=== PATIENT | female | born 1980 | race Caucasian/White ===

== ENCOUNTER 2018-11-30 19:11 | Emergency (ER) | payer OTHER, SELFPAY ==
[2018-11-30 19:15] VITALS: BP 132/92; PULSE 88; RESP 18; TEMP 36.7; O2SAT 98
[2018-11-30 19:35] VITALS: BP 132/91
--- NOTE | 2018-11-30 19:52 | ED_ITS ---
HPI - Abdominal Pain General Chief Complaint: Abdominal Pain Stated Complaint: post surgery symptoms Time Seen by Provider: 11/30/18 19:25 Source: patient Mode of arrival: ambulatory Limitations: no limitations History of Present Illness HPI narrative: Patient is a 38-year-old female who recently had a hysterectomy with bladder suspension 1 week ago presenting today with left lower quadrant pain ongoing for the last 2 days. She denies any fever. She says the pain is definitely worse when she moves. She has been constipated since she left hospital. She is on pain medications a bowel regimen. She did have a small bowel movement today. She has been constantly feeling nauseated but no vomiting she also Zofran at home for that. She has no painful or frequent urination. Pain seems to be pinpoint. She does have diverticulitis. MD complaint: abdominal pain Related Data Home Medications Medication Instructions Recorded Confirmed melatonin 10 mg capsule 10 mg PO BEDTIME PRN 02/27/18 11/30/18 fluoxetine 10 mg PO DAILY 11/30/18 11/30/18 gabapentin 300 mg PO TID 11/30/18 11/30/18 hydromorphone 1 - 2 tab PO Q4HR PRN 11/30/18 11/30/18 ibuprofen 800 mg PO TID 11/30/18 11/30/18 ondansetron 4 mg PO Q6H PRN 11/30/18 11/30/18 oxycodone 1 - 2 tab PO Q4HR PRN 11/30/18 11/30/18 polyethylene glycol 3350 [Miralax] 1 dose PO DAILY PRN 11/30/18 11/30/18 sennosides [senna] 2 tab BID PRN 11/30/18 11/30/18 Previous Rx's Medication Instructions Recorded sulfamethoxazole-trimethoprim 1 tab PO BID #14 tab 11/30/18 [Bactrim DS] Allergies Allergy/AdvReac Type Severity Reaction Status Date / Time meperidine [From DEMEROL] Allergy Unknown Verified 11/30/18 19:22 latex Allergy Rash Verified 11/30/18 19:22 venom-honey bee Allergy Anaphylaxis Verified 11/30/18 19:22 Review of Systems Review of Systems GENERAL: Denies chills, fatigue, malaise, fever, sweats, travel HEENT: Denies sinus pain, ear pain, sore throat, difficulty swallowing, neck pain RESPIRATORY: Denies dyspnea, cough, wheezing, hemoptysis, sputum. CARDIOVASCULAR: Denies chest pain, palpitations, orthopnea, edema GASTROINTESTINAL: See HPI : Denies dysuria, frequency, incontinence, hematuria, urinary retention, flank pain. MUSCULOSKELETAL: Denies weakness, joint pain, or bony pain SKIN: No rash, no erythema, no pruritus NEUROLOGIC: Denies weakness, dizziness, headache, numbness, change in speech, confusion PSYCHIATRIC: No concerning psychosocial issues. 12 point review of systems is negative except for those stated above and HPI [facility] Medical History Endometriosis (Acute) Chronic pain (Acute) Surgical History S/P appendectomy (Acute) Family History (Updated 02/26/18 @ 16:46 by Julia Toussaint) Father Skin cancer Thyroid disorder Mother Diabetes mellitus Thyroid disorder Social History marital status: Smoking Status: Never smoker alcohol intake: current (ON OCCASION ) substance use type: marijuana Family History Father Skin cancer Thyroid disorder Mother Diabetes mellitus Thyroid disorder Social History marital status: Smoking Status: Never smoker alcohol intake: current (ON OCCASION ) substance use type: marijuana Exam Initial Vital Signs Initial Vital Signs: Vital Signs Temperature 98.1 F 11/30/18 19:15 Pulse Rate 88 11/30/18 19:15 Respiratory Rate 18 11/30/18 19:15 Blood Pressure 132/92 H 11/30/18 19:15 Pulse Oximetry 98 11/30/18 19:15 GENERAL: Well-appearing, well-nourished and in no acute distress. HEENT: Head atraumatic,EOMI, pupils reactive, face symmetric, moist mucous membranes CARDIOVASCULAR: Regular rate and rhythm without murmurs, rubs or gallops. RESPIRATORY: Breath sounds equal bilaterally, no wheezes rales or rhonchi. ABDOMEN: Soft, slightly distended mild left lower quadrant pain no guarding no rebound incision sites are clean and dry with no infectious signs. His : No CVA tenderness EXTREMITIES: Normal range of motion, no clubbing or edema. Neurovascularly intact NEUROLOGICAL: Alert and oriented x4.Normal gait and speech. Cranial nerves II through XII grossly intact. SKIN: Warm, dry, no laceration, no petechiae, no rashes or lesions. Course Orders Ordered: ED Orders 11/30/18 19:52 CT abdomen pelvis w con Stat 11/30/18 19:58 Complete Blood Count AUTO DIFF Stat Comprehensive Metabolic Panel Stat Lipase Stat Partial Thromboplastin Time Stat Prothrombin Time INR Stat Discontinued Medications Sodium Chloride (Normal Saline 0.9%) 1,000 mls @ 1,000 mls/hr IV CONT KIRK Last Infusion: 11/30/18 21:38 Dose: 0 mls/hr Infusion: 11/30/18 20:54 Dose: 1,000 mls/hr Infusion: 11/30/18 20:40 Dose: 0 mls/hr Admin: 11/30/18 20:08 Dose: 1,000 mls/hr Trimethoprim/Sulfamethoxazole (Bactrim Ds Prepack) 1 bottle MISC SEEINSTR ONE Stop: 11/30/18 21:35 Last Admin: 11/30/18 21:42 Dose: 1 bottle Vital Signs - 8 hr 11/30/18 19:15 11/30/18 19:35 11/30/18 20:16 Temperature 98.1 F Pulse Rate 88 Respiratory Rate 18 Blood Pressure 132/92 H Blood Pressure [Left Arm] 132/91 H 123/79 Pulse Oximetry 98 11/30/18 20:53 11/30/18 21:00 11/30/18 21:46 Temperature Pulse Rate 82 79 73 Respiratory Rate 16 18 Blood Pressure Blood Pressure [Left Arm] 144/58 H 124/71 128/81 Pulse Oximetry 97 97 98 MDM - Abdominal Pain Lab Data Attestation: I reviewed the patient's lab results. Result diagrams: 11/30/18 19:58 11/30/18 19:58 Lab Results 11/30/18 11/30/18 11/30/18 Range/Units 16:04 19:58 19:58 WBC 8.2 (4.5-11.0) X10^3/uL RBC 4.47 (4.0-5.2) X10^6/uL Hgb 13.7 (12.0-16.0) g/dL Hct 40.3 (36-46) % MCV 90.1 (80-100) fL MCH 30.7 (26-34) PG MCHC 34.1 (30-36) % RDW 12.6 (11.6-14.8) % Plt Count 286 (150-400) X10^3/uL Neut % (Auto) 70.5 (50-75) % Lymph % (Auto) 21.0 L (25-40) % [place] % (Auto) 6.1 (3-14) % Eos % (Auto) 1.6 L (2-4) % Baso % (Auto) 0.8 (0-2) % Neut # (Auto) 5800 (5987-8960) /uL Lymph # (Auto) 1700 (9379-0546) /uL [place] # (Auto) 500 (0-900) /uL Eos # (Auto) 100 (0-450) /uL Baso # (Auto) 100 (0-100) /uL PT 11.9 (10.1-12.7) SECONDS INR 1.0 (0.9-1.3) APTT 32 (26.4-36.2) SECONDS Sodium (137-145) mmol/L Potassium (3.4-5.1) mmol/L Chloride (98-107) mmol/L Carbon Dioxide (22-32) mmol/L BUN (7-17) mg/dL Creatinine (0.52-1.04) mg/dL Estimated GFR (>60) mL/min BUN/Creatinine Ratio (6-22) Glucose (70-100) mg/dL Calcium (8.4-10.2) mg/dL Total Bilirubin (0.2-1.3) mg/dL AST (14-36) IU/L ALT (9-52) IU/L Alkaline Phosphatase (38-126) U/L Total Protein (6.3-8.2) g/dL Albumin (3.5-5.0) g/dL Globulin (1.7-4.1) g/dL Albumin/Globulin Ratio (1.0-2.8) Lipase (23-300) U/L Urine RBC None seen (0-5/HPF) Urine WBC 1-5/hpf (0-5/HPF) Ur Squamous Epith Cells 1-5 /hpf (0-5/HPF) Urine Bacteria Few (2-10) H (None) Ur Culture Indicated? Specimen cultured 11/30/18 Range/Units 19:58 WBC (4.5-11.0) X10^3/uL RBC (4.0-5.2) X10^6/uL Hgb (12.0-16.0) g/dL Hct (36-46) % MCV (80-100) fL MCH (26-34) PG MCHC (30-36) % RDW (11.6-14.8) % Plt Count (150-400) X10^3/uL Neut % (Auto) (50-75) % Lymph % (Auto) (25-40) % [place] % (Auto) (3-14) % Eos % (Auto) (2-4) % Baso % (Auto) (0-2) % Neut # (Auto) (1065-4173) /uL Lymph # (Auto) (4648-3815) /uL [place] # (Auto) (0-900) /uL Eos # (Auto) (0-450) /uL Baso # (Auto) (0-100) /uL PT (10.1-12.7) SECONDS INR (0.9-1.3) APTT (26.4-36.2) SECONDS Sodium 138 (137-145) mmol/L Potassium 3.8 (3.4-5.1) mmol/L Chloride 99 (98-107) mmol/L Carbon Dioxide 27 (22-32) mmol/L BUN 7 (7-17) mg/dL Creatinine 0.80 (0.52-1.04) mg/dL Estimated GFR > 60.0 (>60) mL/min BUN/Creatinine Ratio 8.8 (6-22) Glucose 132 H (70-100) mg/dL Calcium 9.4 (8.4-10.2) mg/dL Total Bilirubin 0.6 (0.2-1.3) mg/dL AST 21 (14-36) IU/L ALT 25 (9-52) IU/L Alkaline Phosphatase 56 (38-126) U/L Total Protein 7.5 (6.3-8.2) g/dL Albumin 4.4 (3.5-5.0) g/dL Globulin 3.1 (1.7-4.1) g/dL Albumin/Globulin Ratio 1.4 (1.0-2.8) Lipase 43 (23-300) U/L Urine RBC (0-5/HPF) Urine WBC (0-5/HPF) Ur Squamous Epith Cells (0-5/HPF) Urine Bacteria (None) Ur Culture Indicated? Point of care testing: Urine Dip Bedside Urine Glucose Negative Bedside Urine Bilirubin - Negative Bedside Urine Ketone - Negative Urine Specific [place] 1.10 Bedside Urine Occult Blood +++ Bedside Urine pH 6.0 Bedside Urine Protein - Negative Bedside Urine Urobilinogen - Negative Bedside Urine Nitrite - Negative Bedside Urine Leukocytes ++ [address] scan - abdomen: Radiologist's impression: PROCEDURE: CT ABDOMEN PELVIS W CON INDICATIONS: llq pain recent hysterectomy and bladder suspension TECHNIQUE: After the administration of intravenous contrast, 5 mm thick sections acquired from the diaphragm to the symphysis. 5 mm coronal and sagittal reformats were acquired. For radiation dose reduction, the following was used: automated exposure control, adjustment of mA and/or kV according to patient size. COMPARISON: None. FINDINGS: Image quality: Excellent. ABDOMEN: Lung bases: Lung bases are clear. Heart size is normal. Solid organs: Liver is normal in size and enhancement. Gallbladder is contracted and is within normal limits. Biliary system is non dilated. Pancreas enhances normally. Spleen is normal in size and enhancement. No adrenal nodules. Kidneys demo nstrate normal size and enhancement, without hydronephrosis. Peritoneum and bowel: Bowel loops demonstrate normal wall thickness and caliber. No free fluid or air. There is a small hiatal hernia. Fecal stasis throughout the colon is seen. Appendix is surgically absent. Numerous small pockets of free air are seen in nondependent portion of lower abdomen and pelvis and left lower quadrant, most likely represent iatrogenic air given patient's history of recent hysterectomy and bladder suspension. No free fluid is seen. Nodes and vessels: No retroperitoneal or mesenteric adenopathy by size criteria. Aorta and inferior vena cava are normal in size. Miscellaneous: No ventral hernias. PELVIS: Genitourinary: Bladder wall thickness is normal. Miscellaneous: No inguinal hernias or adenopathy. Patient is status post hysterectomy with post surgical changes and small amount of fluid seen in the vaginal cuff region. Postsurgical changes in anterior pelvic wall are seen. Bones: No suspicious bony lesions. No vertebral body compression fractures. IMPRESSION: 1. Small amount of peritoneal free air in the lower abdomen and pelvis, most consistent with iatrogenic air from recent hysterectomy. Small amount of fluid noted in the vaginal cuff region. Post surgical changes in anterior lower pelvic wall. 2. Mild constipation. No bowel obstruction. Prior appendectomy. 3. No renal stone or hydronephrosis. Dictated by: Lisandro Lundy M.D. on 11/30/2018 at 21:02 [facility] Narrative Medical decision making narrative: Patient's pain has improved. Blood work and CT are reassuring no complications from surgery. She does have some painful urination with leukocytes in her urine. This time will treat for UTI. Recommend follow up outpatient with her surgeon. Discharge Plan Departure Patient Disposition: Home Clinical Impression: Post-operative pain UTI (urinary tract infection) Qualifiers: Urinary tract infection type: acute cystitis Hematuria presence: with hematuria Qualified Code(s): N30.01 - Acute cystitis with hematuria Discharge Date/Time: 11/30/18 21:50 Interventions: ED Discharge Assessment Last Done: 11/30/18 21:47 Instructions: DI for Postoperative Pain Activity Restrictions/Additional Instructions: *You have been diagnosed with postoperative pain and uti *What to do: At this time here abdominal CT and blood work is reassuring. Increase fluid intake. *Continue to take medications as directed Bactrim 1 tablet twice a day for 7 days--> set to [facility] in [place] *Follow up with your primary care provider in 2-3 days, with your surgeon as previously scheduled *Return to ER if you should have increase abdominal pain not tolerating fluids, fever or any new, worsening or concerning symptoms Prescriptions: New sulfamethoxazole-trimethoprim [Bactrim DS] 800-160 mg tablet 1 tab PO BID Qty: 14 RF: 0 No Action melatonin 10 mg capsule 10 mg PO BEDTIME PRN (Reason: insomnia) RF: 0 sennosides [senna] 8.6 mg Tablet 2 tab BID PRN (Reason: Constipation) RF: 0 polyethylene glycol 3350 [Miralax] 17 gram Powder In Packet 1 dose PO DAILY PRN (Reason: Constipation) RF: 0 ibuprofen 800 mg Tablet 800 mg PO TID RF: 0 fluoxetine 10 mg tablet 10 mg PO DAILY RF: 0 hydromorphone 2 mg tablet 1 - 2 tab PO Q4HR PRN (Reason: Pain, Severe) RF: 0 gabapentin 300 mg capsule 300 mg PO TID RF: 0 ondansetron 4 mg Tablet,Disintegrating 4 mg PO Q6H PRN (Reason: nausea / vomiting) RF: 0 oxycodone 5 mg tablet 1 - 2 tab PO Q4HR PRN (Reason: Pain (Scale Score 7-10)) RF: 0
[2018-11-30 20:01] LABS: RBC Urine None Seen (0-5/HPF)
[2018-11-30 20:04] LABS: Add Manual Diff / Slide Review NO; Basophils Absolute Auto 100 /uL (0-100); Basophils Percent Auto 0.8 % (0-2); Eosinophils Absolute Auto 100 /uL (0-450); Eosinophils Percent Auto 1.6 % (2-4); Hematocrit 40.3 % (36-46); Hemoglobin 13.7 g/dL (12.0-16.0); Lymphocytes Absolute Auto 1700 /uL (1100-4500); Mean Corpuscular HGB Conc 34.1 % (30-36); Mean Corpuscular Hemoglobin 30.7 PG (26-34); Mean Corpuscular Volume 90.1 fL (80-100); Monocytes Absolute Auto 500 /uL (0-900); Monocytes Percent Auto 6.1 % (3-14); Neutrophils Absolute Auto 5800 /uL (1500-7000); Neutrophils Percent Auto 70.5 % (50-75); Platelet Count 286 X10^3/uL (150-400); Red Blood Cell Count 4.47 X10^6/uL (4.0-5.2); Red Cell Distribution Width 12.6 % (11.6-14.8); White Blood Cell Count 8.2 X10^3/uL (4.5-11.0)
[2018-11-30] MEDS: SODIUM CHLORIDE 0.9% 1,000 ML 1000 ML IV (20:08)
[2018-11-30 20:12] LABS: Squamous Epithelial Cell Urine 1-5 /HPF (0-5/HPF); WBC Urine 1-5/HPF (0-5/HPF)
[2018-11-30 20:12] LABS: Prothrombin Time 11.9 SECONDS (10.1-12.7)
[2018-11-30 20:13] LABS: Bacteria Urine Few (2-10); Culture Indicated Urine Specimen Cultured
[2018-11-30 20:15] LABS: PTT Partial Thromboplastin Tim 32 SECONDS (26.4-36.2)
[2018-11-30 20:16] VITALS: BP 123/79
[2018-11-30 20:18] LABS: Alanine Aminotransferase 25 IU/L (9-52); Albumin 4.4 g/dL (3.5-5.0); Albumin Globulin Ratio 1.4 (1.0-2.8); Alkaline Phosphatase 56 U/L (38-126); Aspartate Aminotransferase 21 IU/L (14-36); BUN Creatinine Ratio 8.8 (6-22); Bilirubin Total 0.6 mg/dL (0.2-1.3); Blood Urea Nitrogen 7 mg/dL (7-17); Calcium 9.4 mg/dL (8.4-10.2); Carbon Dioxide 27 mmol/L (22-32); Chloride 99 mmol/L (98-107); Estimated Glomerular Filt Rate > 60.0 mL/min (>60); Globulin 3.1 g/dL (1.7-4.1); Glucose 132 mg/dL (70-100); HEMOLYSIS < 15 (0-50); Lipase 43 U/L (23-300); Potassium 3.8 mmol/L (3.4-5.1); Sodium 138 mmol/L (137-145); Total Protein 7.5 g/dL (6.3-8.2)
[2018-11-30 20:53] VITALS: BP 117/72; BP 144/58; PULSE 82; RESP 16; O2SAT 97
[2018-11-30 21:00] VITALS: BP 124/71; PULSE 79; O2SAT 97
[2018-11-30] MEDS: TRIMETH/SULFA 160/800 PREPACK 1 BOTTLE MISC (21:42)
[2018-11-30 21:46] VITALS: BP 128/81; PULSE 73; RESP 18; O2SAT 98
== END 2018-11-30 21:50 | disposition home or self-care (01) ==
PROVIDERS: Emergency Provider Emergency Medicine
DX: G89.18 Other acute postprocedural pain (principal); N30.01 Acute cystitis with hematuria
CPT/HCPCS: 36591; 51798; 74177; 80053; 81003; 81015; 83690; 85025; 85610; 85730; 87077; 87086; 87186; 96360; 99284; 99285; Q9967

== ENCOUNTER → 2019-02-04 09:22 | Outpatient (CLI) | payer OTHER, SELFPAY ==
[2019-02-04 11:38] LABS: Free T3, Triiodothyronine Free 3.75 pg/mL (2.77-5.27); Free T4, Direct Thyroxine 0.97 ng/dL (0.78-2.19)
[2019-02-04 11:52] LABS: Thyroid Stimulating Hormone 1.15 uIU/mL (0.47-4.68)
[2019-02-05 16:20] LABS: Anti Thyroglobulin Antibody < 1 IU/mL (< 2); Thyroid Peroxidase Antibodies 8 IU/mL (< 9)
[2019-02-08 12:55] LABS: ANA Screen, IFA POSITIVE (NEGATIVE)
== END ==
PROVIDERS: PCP Family Medicine; Visit Provider Naturopath
DX: E04.9 Nontoxic goiter, unspecified (principal); E04.1 Nontoxic single thyroid nodule; Z83.49 Family history of other endocrine, nutritional and metabolic diseases
CPT/HCPCS: 36415; 84439; 84443; 84481; 86038; 86376; 86800

== ENCOUNTER → 2019-02-11 09:19 | Outpatient (CLI) | payer OTHER, SELFPAY ==
--- NOTE | 2019-02-11 | DI.US.S_ITS ---
PROCEDURE: US THYROID INDICATIONS: NONTOXIC GOITER, UNSPECIFID TECHNIQUE: Real-time scanning was performed of the thyroid gland, with image documentation. COMPARISON: [facility], US, PELVIC COMPLETE, 06/03/2011, 10:15. [facility], US, ABDOMEN COMPLETE, 02/21/2011, 16:30. FINDINGS: Right: Thyroid lobe measures 5.4 x 2.2 x 2.0 cm, and is homogeneous in echotexture. Left: Thyroid lobe measures 5.0 x 1.5 x 1.5 cm, and is homogenous in echotexture. Isthmus: 4.0 mm thick. Nodule number: 1 Location: Right mid Size: 1.6 x 1.0 x 1.2 cm. Composition: Predominantly solid Echogenicity: Hypoechoic Shape: wider than tall. Margins: Ill-defined Echogenic foci: None Total points: 4 ACR TI-RADS category: Moderately suspicious Nodule number: 2 Location: Right mid medial Size: 1.1 x 1.1 x 1.1 cm. Composition: Solid Echogenicity: Hypoechoic Shape: wider than tall. Margins: Ill-defined Echogenic foci: None Total points: 4 ACR TI-RADS category: Moderately suspicious Nodule number: 3 Location: Right mid inferior Size: 1.6 x 1.6 x 1.7 cm. Composition: Solid Echogenicity: Hypoechoic Shape: wider than tall. Margins: Ill-defined Echogenic foci: Punctate echogenic foci Total points: 7 ACR TI-RADS category: Highly suspicious Nodule number: 4 Location: Left mid Size: 1.0 x 0.7 x 0.9 cm. Composition: Solid Echogenicity: Hypoechoic Shape: wider than tall. Margins: Ill-defined Echogenic foci: Punctate echogenic foci Total points: 7 ACR TI-RADS category: Highly suspicious Nodule number: 5 Location: Left mid inferior Size: 0.8 x 0.7 x 0.8 cm. Composition: Solid Echogenicity: Isoechoic Shape: wider than tall. Margins: Ill-defined Echogenic foci: Punctate echogenic foci Total points: 6 ACR TI-RADS category: Moderately suspicious Nodule number: 6 Location: Left mid medial Size: 1.0 x 0.8 x 0.8 cm Composition: Solid Echogenicity: Hyperechoic Shape: wider than tall. Margins: Ill-defined Echogenic foci: Punctate foci Total points: 6 ACR TI-RADS category: Moderately suspicious IMPRESSION: Bilateral thyroid nodules as above. Recommend ultrasound-guided fine needle aspiration of the highly suspicious right thyroid nodule labeled #3, the highly suspicious left thyroid nodule labeled #4, and the moderately suspicious left thyroid nodule labeled #6. Continued ultrasound surveillance of the additional thyroid nodules is recommended as detailed below. ACR TI-RADS definitions and recommendations: TI-RADS 1 (benign): 0 points. FNA not needed. TI-RADS 2 (not suspicious): 2 points. FNA not needed. TI-RADS 3 (mildly suspicious): 3 points. * FNA if 2.5 cm or larger, follow up if 1.5 cm or larger (at 1, 3, and 5 years). TI-RADS 4 (moderately suspicious): 4-6 points. * FNA if 1.5 cm or larger, follow up if 1 cm or larger (at 1, 2, 3, and 5 years). TI-RADS 5 (highly suspicious): 7 points or more. * FNA if 1 cm or larger, follow up if 0.5 cm or larger (every year for 5 years). Dictated by: Jean Yoon [facility] Interpreted: Zackery Martinez MD on 02/11/2019 at 12:11 Approved by: Zackery Martinez M.D. on 02/11/2019 at 14:35
== END ==
PROVIDERS: PCP Family Medicine; Visit Provider Naturopath
DX: E04.2 Nontoxic multinodular goiter (principal)
CPT/HCPCS: 76536

== ENCOUNTER → 2019-03-24 11:05 | Outpatient (CLI) | payer OTHER, SELFPAY ==
--- NOTE | 2019-03-24 | DI.RAD.S_ITS ---
PROCEDURE: XR LUMBAR SPINE 2-3V INDICATIONS: Lumbar Radiculopathy TECHNIQUE: 3 views of the lumbar spine were acquired. COMPARISON: None. FINDINGS: Bones: 5 [id number] vertebrae are present. There is trace retrolisthesis of L1 on L2, L2 and L3-4. Minimal to mild disc and foraminal narrowing is noted at L5-S1. No vertebral body compression fractures. No suspicious bony lesions. Soft tissues: Overlying bowel gas pattern is normal. No suspicious soft tissue calcifications. IMPRESSION: Early degenerative changes noted at L5-S1. Dictated by: Janene Correa M.D. on 03/24/2019 at 15:32 Approved by: Janene Correa M.D. on 03/24/2019 at 15:34
== END ==
PROVIDERS: PCP Family Medicine; Visit Provider Family Medicine
DX: M47.27 Other spondylosis with radiculopathy, lumbosacral region (principal)
CPT/HCPCS: 72100

== ENCOUNTER → 2021-07-01 13:26 | Outpatient (CLI) | payer OTHER, SELFPAY | PROVIDERS: PCP Family Medicine; Visit Provider Physician Assistant | DX: R30.0 Dysuria (principal) | CPT/HCPCS: 87086 ==

== ENCOUNTER → 2021-07-01 14:02 | Outpatient (CLI) | payer OTHER, SELFPAY ==
--- NOTE | 2021-07-01 14:05 | DI.RAD.S_ITS ---
PROCEDURE: XR KUB INDICATIONS: L flank pain TECHNIQUE: One view of the abdomen acquired. COMPARISON: None. FINDINGS: Surgical changes and devices: Surgical clips are seen projecting over the right sacrum. Bowel: Bowel gas pattern is normal. Soft tissues: A 4 mm calcification is seen projecting over the inferior pole of the left kidney. Visualized solid organ contours appear normal in size. Bones: No suspicious bony lesions. IMPRESSION: 4 mm calcification projecting over the inferior pole of the left kidney is most likely a nonobstructing renal calculus. Dictated by: José Manuel Quintero M.D. on 07/01/2021 at 14:17 Approved by: José Manuel Quintero M.D. on 07/01/2021 at 14:18
[2021-07-01 15:12] LABS: BUN Creatinine Ratio 12.8 (6-22); Blood Urea Nitrogen 11 mg/dL (7-17); Calcium 9.5 mg/dL (8.4-10.2); Carbon Dioxide 28 mmol/L (22-32); Chloride 107 mmol/L (98-107); Estimated Glomerular Filt Rate > 60.0 mL/min (>60); Glucose 88 mg/dL (70-100); HEMOLYSIS < 15 (0-50); Potassium 4.1 mmol/L (3.4-5.1); Sodium 139 mmol/L (137-145)
== END ==
PROVIDERS: PCP Family Medicine; Referring Provider Physician Assistant; Visit Provider Physician Assistant
DX: R10.9 Unspecified abdominal pain (principal); R30.0 Dysuria
CPT/HCPCS: 36415; 74018; 80048; 87086

== ENCOUNTER → 2021-07-12 11:04 | Outpatient (CLI) | payer OTHER, SELFPAY ==
--- NOTE | 2021-07-12 11:14 | DI.CT.S_ITS ---
PROCEDURE: CT ABDOMEN PELVIS WO/W CON INDICATIONS: Calculus of kidney TECHNIQUE: Optional 5 mm thick noncontrast images acquired from the diaphragm to the symphysis pubis. After the administration of intravenous contrast, 5 mm thick images acquired from the diaphragm to the symphysis pubis after a 10-minute delay. 2 mm thick coronal and sagittal reformats were then performed of the kidneys and ureters. For radiation dose reduction, the following was used: automated exposure control, adjustment of mA and/or kV according to patient size. COMPARISON: [facility], CT, CT ABDOMEN PELVIS W CON, 11/30/2018, 20:42. , US RENAL AND/OR RETROPERITONEAL, 05/02/2006, 9:01. FINDINGS: Image quality: Excellent. Lung bases: Lung bases are clear. Heart size is normal. Urinary system: Both kidneys are normal in size, without hydronephrosis. There is a 3 mm stone in the inferior pole of the left kidney. There is normal bilateral renal enhancement. Renal calyces appear normal in morphology when filled with contrast. Opacified portions of both ureters demonstrate normal caliber. Bladder wall thickness is normal. No calcified bladder stones. Other solid organs: There is a hypodensity in the left hepatic lobe adjacent to the falciform ligament, likely focal fat. Liver is normal in size and enhancement. Gallbladder is normal . Biliary system is non dilated. Pancreas enhances normally. Spleen is normal in size and enhancement. No adrenal nodules. Peritoneum and bowel: Bowel loops demonstrate normal wall thickness and caliber. Surgical changes in the right lower quadrant is presumably related to appendectomy. No free fluid or air. Nodes and vessels: No retroperitoneal or mesenteric adenopathy by size criteria. Aorta and inferior vena cava are normal in size. Abdominal wall: Tiny fat containing umbilical hernia is noted. Pelvis: Hysterectomy. There is a 1.7 cm cyst in the left ovary. Right ovary is not well seen. No pathologic free pelvic fluid. No inguinal hernias or adenopathy. Bones: No suspicious bony lesions. No vertebral body compression fractures. IMPRESSION: 1. A 3 mm left renal calculus. No hydronephrosis. Dictated by: Candelario Celis M.D. on 07/12/2021 at 16:13 Approved by: Candelario Celis M.D. on 07/12/2021 at 17:46
== END ==
PROVIDERS: PCP Family Medicine; Referring Provider Family Medicine; Visit Provider Family Medicine
DX: N20.0 Calculus of kidney (principal)
CPT/HCPCS: 74178; Q9967

== ENCOUNTER → 2021-12-25 08:12 | Outpatient (CLI) | payer OTHER, SELFPAY ==
--- NOTE | 2021-12-25 | DI.MG.S_ITS ---
BILATERAL DIGITAL SCREENING MAMMOGRAM 3D/2D WITH CAD: 12/25/2021 CLINICAL: Routine screening. Baseline exam. Family history of breast cancer. No prior exams were available for comparison. The tissue of both breasts is heterogeneously dense. This may lower the sensitivity of mammography. Current study was also evaluated with a Computer Aided Detection (CAD) system. No significant masses, calcifications, or other findings are seen in either breast. IMPRESSION: NEGATIVE There is no mammographic evidence of malignancy. A 1 year screening mammogram is recommended. Based on the Tyrer Cuzick model (a risk assessment model) the patient's lifetime risk is 6.6% and her 10 year risk is 0.8%. According to the ACR, ACS, and NCCN guidelines, an annual breast MRI exam along with mammogram is recommended if the patient's lifetime risk is 20% or greater. This exam was interpreted at Station ID: [id number]. NOTE: For mammograms, a report in lay terms will be sent to the patient. Approximately 15% of breast malignancies will not be visualized mammographically. In the management of a palpable breast mass, a negative mammogram must not discourage biopsy of a clinically suspicious lesion. Electronically Signed By: Oscar Morales acr/sly:12/25/2021 08:54:15 letter sent: Normal Exam ACR BI-RADS Category 1: Negative [id number]
== END ==
PROVIDERS: Family Provider Family Medicine; PCP Family Medicine; Referring Provider Family Medicine; Visit Provider Family Medicine
DX: Z12.31 Encounter for screening mammogram for malignant neoplasm of breast (principal); Z80.3 Family history of malignant neoplasm of breast
CPT/HCPCS: 77063; 77067

== ENCOUNTER → 2021-12-28 18:14 | Outpatient (CLI) | payer OTHER, SELFPAY ==
--- NOTE | 2021-12-28 18:18 | DI.RAD.S_ITS ---
PROCEDURE: XR CERVICAL SPINE 4V OR 5V INDICATIONS: Pain TECHNIQUE: 5 views of the cervical spine were acquired. COMPARISON: None. FINDINGS: Bones: No fractures or dislocations to the T1 level. No suspicious bony lesions. There is 3 mm of retrolisthesis on extension at C3-4 which reduces on flexion. Disc space is maintained. Mild disc space narrowing at C5-6 Soft tissues: Prevertebral soft tissues are normal in thickness. Multiple surgical clips in the thyroid bed consistent with surgical thyroidectomy IMPRESSION: Focal 3 mm translation at C3-4 between flexion extension suggests an element of instability. Thyroidectomy Approved by: Matt Shah M.D. on 12/28/2021 at 18:06
== END ==
PROVIDERS: Family Provider Family Medicine; PCP Family Medicine; Referring Provider Internal Medicine Rheumatology; Visit Provider Internal Medicine Rheumatology
DX: M54.2 Cervicalgia (principal)
CPT/HCPCS: 72052

== ENCOUNTER 2022-01-10 14:06 | Outpatient (CLI) | payer OTHER, SELFPAY | END 2022-01-16 10:38 | disposition home or self-care (01) | LOC: PHYS 14:07 | PROVIDERS: Family Provider Family Medicine; PCP Family Medicine; Referring Provider Family Medicine; Visit Provider Family Medicine | DX: R20.2 Paresthesia of skin (principal) | CPT/HCPCS: 95885; 95886; 95912 ==

== ENCOUNTER → 2022-02-15 10:28 | Outpatient (CLI) | payer OTHER, SELFPAY ==
--- NOTE | 2022-02-15 10:30 | DI.MRI.S_ITS ---
PROCEDURE: MR CERVICAL SPINE WO/W CON INDICATIONS: Spinal instabilities, cervical region TECHNIQUE: Noncontrast sagittal T1 spin echo and T2 fast spin echo, sagittal STIR, foraminal oblique sagittal T2 fast spin echo, axial gradient echo or T2 fast spin echo through the cervical spine. After the administration of contrast, axial and sagittal T1 spin echo with fat saturation through the cervical spine. COMPARISON: [facility], MR, MR HEAD/BRAIN WO/W CON, 02/15/2022, 10:48. FINDINGS: Image quality: Excellent. Alignment and curvature: There is normal bony alignment. Marrow: Marrow is normal in overall signal, without suspicious enhancement. Spinal cord: Visualized spinal cord has normal size and signal. No cerebellar tonsillar herniation. No abnormal intramedullary enhancement. Paraspinous soft tissues: No paravertebral masses or suspicious enhancement. C2-3: Normal appearance. C3-4: Normal appearance. C4-5: Normal appearance. C5-6: Mild posterior disc bulge without central or foraminal stenosis. C6-7: Normal appearance. C7-T1: Normal appearance. IMPRESSION: Mild degenerative disc disease C5-6 without central or foraminal stenosis throughout the exam Approved by: Matt Shah M.D. on 02/15/2022 at 13:16
--- NOTE | 2022-02-15 10:30 | DI.MRI.S_ITS ---
PROCEDURE: MR HEAD/BRAIN WO/W CON INDICATIONS: Spinal instabilities, cervical region TECHNIQUE: Noncontrast axial T1 spin echo, axial T2 fast spin echo, sagittal and axial FLAIR, coronal T2 fast spin echo, axial gradient echo, axial diffusion and ADC through the brain. After the administration of contrast, axial and coronal and sagittal 3D VIBE or T1 spin echo with fat saturation through the brain. COMPARISON: None. FINDINGS: Image quality: Excellent. CSF Spaces: Basal cisterns are patent. No extra-axial fluid collections. Ventricles are normal in size and shape. Brain: No midline shift. No intracranial bleeds or masses. No abnormal intracranial enhancement. The brainstem appears normal. Diffusion-weighted images demonstrate no acute ischemic insults. No chronic ischemic insults. Normal intravascular flow voids are present. Skull and face: Calvarial marrow is normal in signal. Orbits appear normal. Sinuses: Sinuses and mastoids appear clear. IMPRESSION: Brain MRI within normal limits. No masses or abnormal enhancement can be seen. Dictated by: Minh Alarcon M.D. on 02/15/2022 at 11:31 Approved by: Minh Alarcon M.D. on 02/15/2022 at 11:32
== END ==
PROVIDERS: Family Provider Family Medicine; PCP Family Medicine; Referring Provider Psychiatry & Neurology Neurology; Visit Provider Psychiatry & Neurology Neurology
DX: M53.2X2 Spinal instabilities, cervical region (principal); M50.322 Other cervical disc degeneration at C5-C6 level; G89.29 Other chronic pain; R20.0 Anesthesia of skin; R20.2 Paresthesia of skin; R29.2 Abnormal reflex; M05.9 Rheumatoid arthritis with rheumatoid factor, unspecified; R42 Dizziness and giddiness; R25.1 Tremor, unspecified
CPT/HCPCS: 70553; 72156

== ENCOUNTER → 2023-04-06 13:00 | Outpatient (CLI) | payer OTHER, SELFPAY | PROVIDERS: Family Provider Family Medicine; PCP Family Medicine; Visit Provider Physician Assistant | DX: J02.9 Acute pharyngitis, unspecified (principal) | CPT/HCPCS: 87070 ==

== ENCOUNTER → 2023-10-14 12:05 | Outpatient (CLI) | payer OTHER, SELFPAY ==
[2023-10-14 14:26] LABS: Ferritin 30 ng/mL (6-137)
[2023-10-14 14:40] LABS: Vitamin B12 748 pg/mL (239-931)
[2023-10-16 23:10] LABS: Deamidated Gliadin Ab IgA 4 units (0-19); Deamidated Gliadin Ab IgG 2 units (0-19); Immunoglobulin A,Qn 197 mg/dL (87-352); t-Transglutaminase IgA <2 U/mL (0-3)
== END ==
PROVIDERS: Family Provider Family Medicine; PCP Family Medicine; Referring Provider Naturopath; Visit Provider Naturopath
DX: E06.3 Autoimmune thyroiditis (principal); M06.9 Rheumatoid arthritis, unspecified
CPT/HCPCS: 36415; 82607; 82728; 82784; 83516

== ENCOUNTER → 2024-01-21 16:44 | Outpatient (CLI) | payer OTHER, SELFPAY ==
[2024-01-21 18:33] LABS: Free T3, Triiodothyronine Free 3.57 pg/mL (2.77-5.27); Free T4, Direct Thyroxine 1.17 ng/dL (0.78-2.19)
[2024-01-21 18:46] LABS: Thyroid Stimulating Hormone 0.151 uIU/mL (0.47-4.68)
[2024-01-23 07:40] LABS: Thyroid Peroxidase Antibodies 37 IU/mL (0-34)
== END ==
LOC: LAB 16:45
PROVIDERS: Family Provider Family Medicine; PCP Family Medicine; Referring Provider Naturopath; Visit Provider Naturopath
DX: E06.3 Autoimmune thyroiditis (principal)
CPT/HCPCS: 36415; 84439; 84443; 84481; 86376

== ENCOUNTER → 2024-01-29 16:02 | Outpatient (CLI) | payer OTHER, SELFPAY ==
--- NOTE | 2024-01-29 16:02 | DI.MG.S_ITS ---
BILATERAL DIGITAL SCREENING MAMMOGRAM 3D/2D WITH CAD: 01/29/2024 CLINICAL: Routine screening. Family history of breast cancer. Comparison is made to exam dated: 12/25/2021 mammogram - [facility]. The breasts are heterogeneously dense, which may obscure small masses (category c / 51-75% glandular tissue). Current study was also evaluated with a Computer Aided Detection (CAD) system. There is a new asymmetry with an obscured margin in the left breast middle depth lateral region seen on the craniocaudal view only. No other significant masses, calcifications, or other findings are seen in either breast. IMPRESSION: INCOMPLETE: NEED ADDITIONAL IMAGING EVALUATION The new asymmetry in the left breast is indeterminate. Additional views with possible ultrasound are recommended. Based on the Tyrer Cuzick model (a risk assessment model) the patient's lifetime risk is 7.1% and her 10 year risk is 1.1%. According to the ACR, ACS, and NCCN guidelines, an annual breast MRI exam along with mammogram is recommended if the patient's lifetime risk is 20% or greater. This exam was interpreted at Station ID: [id number]. NOTE: For mammograms, a report in lay terms will be sent to the patient. Approximately 15% of breast malignancies will not be visualized mammographically. In the management of a palpable breast mass, a negative mammogram must not discourage biopsy of a clinically suspicious lesion. Electronically Signed By: Ramirez Sanchez M.D. [facility]/:01/30/2024 09:14:19 letter sent: Additional Imaging Needed ACR BI-RADS Category 0: Incomplete: Need Additional Imaging Evaluation
== END ==
LOC: MAMMO 16:02
PROVIDERS: Family Provider Family Medicine; PCP Family Medicine; Referring Provider Family Medicine; Visit Provider Family Medicine
DX: Z12.31 Encounter for screening mammogram for malignant neoplasm of breast (principal); Z80.3 Family history of malignant neoplasm of breast; R92.333 Mammographic heterogeneous density, bilateral breasts
CPT/HCPCS: 77063; 77067

== ENCOUNTER → 2024-02-23 12:04 | Outpatient (CLI) | payer OTHER, SELFPAY ==
--- NOTE | 2024-02-23 | DI.US.S_ITS ---
LIMITED ULTRASOUND OF LEFT BREAST: 02/23/2024 CLINICAL: Patient returns today to evaluate an asymmetry in the left breast. Comparison is made to exams dated: 02/23/2024 mammogram, 01/29/2024 mammogram, and 12/25/2021 mammogram - [facility]. Color flow and real-time ultrasound of the left breast 2-3 o'clock region were performed. Terrazas scale images of the real-time examination were reviewed. There is a 0.5 cm x 0.3 cm x 0.4 cm wider than tall oval mass in the left breast at 3 o'clock posterior depth 10 cm from the nipple. This oval mass is hypoechoic. This correlates with mammography findings. Color flow imaging demonstrates that there is vascularity present. IMPRESSION: PROBABLY BENIGN The 0.5 cm x 0.3 cm x 0.4 cm wider than tall oval mass in the left breast has a differential diagnosis of a complex cyst, a complicated cyst, a lymph node, or a fibroadenoma and is probably benign. A follow-up left mammogram and an ultrasound in 6 months is recommended to demonstrate stability. Findings and recommendations were conveyed to the patient during today's evaluation. This exam was interpreted at Station ID: [id number]. Electronically Signed By: Stevie Woods M.D. [facility]/:02/23/2024 15:18:51 letter sent: Followup Recommended ACR BI-RADS Category 3: Probably Benign
--- NOTE | 2024-02-23 | DI.MG.S_ITS ---
UNILATERAL LEFT DIGITAL DIAGNOSTIC MAMMOGRAM 3D/2D WITH ADDITIONAL VIEWS: 02/23/2024 CLINICAL: Additional evaluation requested from prior study. Comparison is made to exams dated: 01/29/2024 mammogram and 12/25/2021 mammogram - [facility]. The breasts are heterogeneously dense, which may obscure small masses (category c / 51-75% glandular tissue). The previously described 0.6 cm oval asymmetry with an obscured margin in the left breast posterior depth lateral region seen on the craniocaudal view only is not definitively seen in additional views. Overall it appears less prominent. No other significant masses or calcifications are seen in the breast. IMPRESSION: INCOMPLETE: NEED ADDITIONAL IMAGING EVALUATION The 0.6 cm oval asymmetry in the left breast resembles a cyst or fibroglandular tissue and is indeterminate. An ultrasound is recommended for further evaluation and is scheduled to immediately follow this examination. Based on the Tyrer Cuzick model (a risk assessment model) the patient's lifetime risk is 7.1% and her 10 year risk is 1.1%. According to the ACR, ACS, and NCCN guidelines, an annual breast MRI exam along with mammogram is recommended if the patient's lifetime risk is 20% or greater. This exam was interpreted at Station ID: [id number]. NOTE: For mammograms, a report in lay terms will be sent to the patient. Approximately 15% of breast malignancies will not be visualized mammographically. In the management of a palpable breast mass, a negative mammogram must not discourage biopsy of a clinically suspicious lesion. Electronically Signed By: Stevie Woods M.D. [facility]/:02/23/2024 12:52:18 letter sent: Additional Imaging Needed ACR BI-RADS Category 0: Incomplete: Need Additional Imaging Evaluation
== END ==
PROVIDERS: Family Provider Family Medicine; PCP Family Medicine; Referring Provider Family Medicine; Visit Provider Family Medicine
DX: R92.8 Other abnormal and inconclusive findings on diagnostic imaging of breast (principal); N63.25 Unspecified lump in the left breast, overlapping quadrants; R92.333 Mammographic heterogeneous density, bilateral breasts
CPT/HCPCS: 76642; 77065; G0279

== ENCOUNTER → 2024-07-07 15:29 | Outpatient (CLI) | payer OTHER, SELFPAY ==
[2024-07-07 16:17] LABS: Hemoglobin A1C% w Est Avg Glu 4.6 % (4.0-6.0)
[2024-07-07 16:44] LABS: Free T3, Triiodothyronine Free 3.37 pg/mL (2.77-5.27); Free T4, Direct Thyroxine 1.28 ng/dL (0.78-2.19)
[2024-07-07 16:57] LABS: Thyroid Stimulating Hormone 2.92 uIU/mL (0.47-4.68)
== END ==
PROVIDERS: Family Provider Family Medicine; PCP Family Medicine; Referring Provider Naturopath; Visit Provider Naturopath
DX: E06.3 Autoimmune thyroiditis (principal); R73.03 Prediabetes
CPT/HCPCS: 36415; 83036; 84439; 84443; 84481

== ENCOUNTER → 2024-08-16 | Outpatient (CLI) | payer OTHER, SELFPAY ==
--- NOTE | 2024-08-16 08:39 | DI.MG.S_ITS ---
US breast LT limited, MM diagnostic mammo unilat LT: 08/16/2024 BI-RADS: 3 CLINICAL: 44-year old female for left diagnostic mammogram and left diagnostic breast ultrasound that is a follow-up to 02/23/2024. Tyrer-Cuzick lifetime risk of 11.4%. No personal or first-degree family history of breast cancer. Current reported family history of breast cancer: paternal grandmother. The patient reports pain in the left breast. PRIOR EXAMS 02/23/2024, 01/29/2024, 12/25/2021. MAMMOGRAPHY TECHNIQUE: 2D and 3D (tomosynthesis) digital mammographic views obtained, with additional images as needed for full coverage. Current study was also evaluated with a Computer Aided Detection (CAD) system. ULTRASOUND TECHNIQUE: TARGETED Left Breast Ultrasound: Real-time ultrasound exam was performed focused to area of clinical and/or imaging concern. Real-time herrera scale and color doppler imaging of the area of clinical interest was performed with image documentation. DENSITY Left: C. The breasts are heterogeneously dense, which may obscure small masses. MAMMOGRAPHY FINDINGS Left (finding-1): Upper Outer Quadrant, Middle depth: There is no suspicious mammographic finding to account for concern by the patient of pain/tenderness. No suspicious mass, asymmetry, microcalcification, or other abnormality seen. Left: CC only, Outer, Middle depth: Previously described asymmetry in the lateral left breast is even less conspicuous on the present examination and is not definitively seen. ULTRASOUND FINDINGS Left: Outer at 3:00, 10 cm from nipple, measuring 0.4 x 0.5 x 0.3 cm, previously measuring 0.5 x 0.3 x 0.4 cm: There is an oval, hypoechoic cyst vs solid mass that is unchanged in size and appearance. Left (finding-1): Upper Outer at 2:00, 8 cm from nipple: There is no suspicious sonographic finding to account for concern by the patient of pain/tenderness. IMPRESSION: Left (CvS): Outer at 3:00, 10 cm from nipple, measuring 0.4 x 0.5 x 0.3 cm, previously measuring 0.5 x 0.3 x 0.4 cm * Probably Benign. RECOMMENDATIONS Left: Outer at 3:00, 10 cm from nipple * Six month followup with diagnostic mammography and diagnostic ultrasound. When the patient returns for short-term unilateral followup, a bilateral screening mammogram will also be due. COMMENTS: Findings and recommendations were conveyed to the patient during today's evaluation. OVERALL ASSESSMENT CATEGORY BI-RADS-3: Probably Benign. ELECTRONICALLY SIGNED: Ebonie Urena M.D. on 08/16/2024 at 10:15:09 AM PT Interpreting Station ID: [id number]
== END ==
PROVIDERS: Family Provider Family Medicine; PCP Family Medicine; Referring Provider Family Medicine; Visit Provider Family Medicine
DX: R92.8 Other abnormal and inconclusive findings on diagnostic imaging of breast (principal); N63.25 Unspecified lump in the left breast, overlapping quadrants; N64.4 Mastodynia; R92.332 Mammographic heterogeneous density, left breast; Z80.3 Family history of malignant neoplasm of breast
CPT/HCPCS: 76642; 77065; G0279

== ENCOUNTER → 2024-12-08 07:53 | Outpatient (CLI) | payer OTHER, SELFPAY ==
[2024-12-08 08:26] LABS: Add Manual Diff / Slide Review NO; Hematocrit 39.1 % (36-46); Hemoglobin 13.9 g/dL (12.0-16.0); Lymphocytes Absolute Auto 1100 /uL (1100-4500); Mean Corpuscular HGB Conc 35.5 % (30-36); Mean Corpuscular Hemoglobin 31.1 PG (26-34); Mean Corpuscular Volume 87.8 fL (80-100); Platelet Count 213 X10^3/uL (150-400)
[2024-12-08 08:35] LABS: Hemoglobin A1C% w Est Avg Glu 5.0 % (4.0-6.0)
[2024-12-08 08:49] LABS: Alanine Aminotransferase 35 IU/L (<35); Albumin 4.2 g/dL (3.5-5.0); Albumin Globulin Ratio 1.6 (1.0-2.8); Alkaline Phosphatase 52 U/L (38-126); Blood Urea Nitrogen 12 mg/dL (7-17); Calcium 9.1 mg/dL (8.4-10.2); Carbon Dioxide 21 mmol/L (22-32); Chloride 107 mmol/L (98-107); Cholesterol 177 mg/dL (140-199); Estimated Glomerular Filt Rate > 60 mL/min (>60); Globulin 2.7 g/dL (1.7-4.1); Glucose 105 mg/dL (70-99); HDL Cholesterol 63 mg/dL (40-60); HEMOLYSIS < 15 (0-50); Potassium 4.1 mmol/L (3.4-5.1); Sodium 136 mmol/L (137-145); Total Protein 6.9 g/dL (6.3-8.2); Triglycerides 54 mg/dL (35-150)
[2024-12-08 09:08] LABS: Free T3, Triiodothyronine Free 3.69 pg/mL (2.77-5.27); Free T4, Direct Thyroxine 1.65 ng/dL (0.78-2.19)
[2024-12-08 09:22] LABS: Thyroid Stimulating Hormone < 0.015 uIU/mL (0.47-4.68)
[2024-12-08 09:24] LABS: Ferritin 42 ng/mL (6-137)
[2024-12-08 09:41] LABS: Vitamin B12 622 pg/mL (239-931)
== END ==
PROVIDERS: Family Provider Family Medicine; PCP Family Medicine; Referring Provider Naturopath; Visit Provider Naturopath
DX: E06.3 Autoimmune thyroiditis (principal); E53.8 Deficiency of other specified B group vitamins; E61.1 Iron deficiency; Z00.00 Encounter for general adult medical examination without abnormal findings
CPT/HCPCS: 36415; 80053; 80061; 82607; 82728; 83036; 84439; 84443; 84481; 85025; 86376

== ENCOUNTER → 2025-02-18 07:40 | Outpatient (CLI) | payer OTHER, SELFPAY ==
[2025-02-18 09:13] LABS: Hematocrit 40.2 % (36-46); Hemoglobin 14.2 g/dL (12.0-16.0); Mean Corpuscular HGB Conc 35.3 % (30-36); Mean Corpuscular Hemoglobin 30.9 PG (26-34); Mean Corpuscular Volume 87.6 fL (80-100); Platelet Count 203 X10^3/uL (150-400)
[2025-02-18 09:40] LABS: Alanine Aminotransferase 30 IU/L (<35); Albumin 4.3 g/dL (3.5-5.0); Albumin Globulin Ratio 1.5 (1.0-2.8); Alkaline Phosphatase 46 U/L (38-126); Blood Urea Nitrogen 13 mg/dL (7-17); Calcium 9.8 mg/dL (8.4-10.2); Carbon Dioxide 21 mmol/L (22-32); Chloride 105 mmol/L (98-107); Estimated Glomerular Filt Rate > 60 mL/min (>60); Globulin 2.9 g/dL (1.7-4.1); Glucose 107 mg/dL (70-99); HEMOLYSIS 16 (0-50); Potassium 4.3 mmol/L (3.4-5.1); Sodium 136 mmol/L (137-145); Total Protein 7.2 g/dL (6.3-8.2)
== END ==
PROVIDERS: Family Provider Family Medicine; PCP Family Medicine; Referring Provider Naturopath; Visit Provider Specialist/Technologist Athletic Trainer
DX: M05.9 Rheumatoid arthritis with rheumatoid factor, unspecified (principal)
CPT/HCPCS: 36415; 80053; 85027; 85651; 86140